=== PATIENT | female | born 1960 | race Two or more races ===

== ENCOUNTER 2021-05-31 11:32 | Emergency (ER) | payer MEDICAID, OTHER ==
[~2021-05-31] VITALS: Ht 167.6 cm; Wt 90.7 kg
[2021-05-31 13:46] VITALS: BP 156/97
[2021-05-31] MEDS ORDERED: cefTRIAXone SOD 1,000 MG VL IM ONE (14:45)
[2021-05-31] MEDS ORDERED: CEPH-509 PO (15:44)
== END 2021-05-31 16:20 | disposition home or self-care (01) ==
LOC: ER 11:32
DX: L03.011 Cellulitis of right finger (principal); I10 Essential (primary) hypertension; Z90.49 Acquired absence of other specified parts of digestive tract
CPT/HCPCS: 73200; 96372; 99284; J0696

== ENCOUNTER 2025-02-09 10:06 | Emergency (ER) | payer OTHER, MEDICAID ==
[~2025-02-09] VITALS: Ht 172.7 cm; Wt 100.0 kg
[~2025-02-09 10:06] MED LIST: CALC280T PO; CHOL25CH3 PO; CYAN-17 PO; LISI-285 PO; MULT-1018 PO; PANT40T PO
[2025-02-09 10:13] VITALS: BP 168/83; PULSE 68; RESP 18; TEMP 98.2; O2SAT 98
== END 2025-02-09 12:00 | disposition left against medical advice (07) ==
LOC: EDBD 10:06 → ER 10:06
DX: R51.9 Headache, unspecified (principal); Z79.899 Other long term (current) drug therapy